=== PATIENT | male | born 1985 | race Caucasian/White ===

== ENCOUNTER 2021-01-21 16:40 | Outpatient (CLI) | payer BC, OTHER, SELFPAY ==
--- NOTE | 2021-01-21 16:58 | XR_ITS ---
WS: [id number] Left leg including the tibia and fibula, AP and lateral views, 01/21/2021 Clinical Data: LT.LOWER LEG PAIN Comparison: Left leg, 03/13/2013. Findings: No new fractures or dislocations are seen. The tibia and fibula are intact. The soft tissues are norm al. There is periosteal reaction at the proximal lateral left fibula which may be result of an old injury . The left ankle mortise appears to be normal and the left knee is unremarkable. XR/XR tibia fibula LT 2V [id number] Impression: Negative for fracture.
== END 2021-01-21 16:41 | disposition home or self-care (01) ==
PROVIDERS: Visit Provider Nurse Practitioner Family
DX: M79.662 Pain in left lower leg (principal)
CPT/HCPCS: 73590

== ENCOUNTER 2022-09-22 06:00 | Outpatient (CLI) | payer BC, SELFPAY | END 2022-09-22 06:01 | disposition home or self-care (01) | LOC: SPT 10-08 19:28 | PROVIDERS: Visit Provider Podiatrist Foot & Ankle Surgery | DX: Z46.89 Encounter for fitting and adjustment of other specified devices (principal); M79.671 Pain in right foot | CPT/HCPCS: 97760; L4361 ==

== ENCOUNTER 2022-10-03 16:44 | Emergency (ER) | payer BC, SELFPAY ==
[2022-10-03 16:51] VITALS: BP 150/96; PULSE 76; RESP 16; TEMP 36.9; O2SAT 97; BMI 46.8
--- NOTE | 2022-10-03 16:56 | XRR_ITS ---
PROCEDURE INFORMATION: Exam: XR Right Foot Exam date and time: 10/03/2022 6:03 PM Age: 36 years old Clinical indication: Pain; Foot; Right; Additional info: Injury, pain TECHNIQUE: Imaging protocol: Radiologic exam of the Right foot. Views: 3 or more views. COMPARISON: No relevant prior studies available. FINDINGS: Bones/joints: No definite fracture is identified. There is some spurring from the dorsal aspect of the foot. There is possibly a small chip or avulsion fracture seen in the lateral projection, possibly from dorsal aspect of the middle cuneiform. Please correlate with clinical findings. Soft tissues: There is mild soft tissue swelling. XR/XR foot RT min 3V* [id number] IMPRESSION: Question of small chip fracture from the dorsal aspect of 1 of the cuneiform bones versus degenerative spur.
--- NOTE | 2022-10-03 17:06 | W.ED.EXTPRO ---
HPI - Extremity Problem General: Chief complaint: Extremity Injury, Upper Stated complaint: right side leg is in pain Time Seen by Provider: 10/03/22 16:59 PFSH ED PFSH: Social History Smoking and tobacco status: never smoked Course Vital Signs: Vital signs: Vital Signs Temperature 98.5 F 10/03/22 16:51 Pulse Rate 76 10/03/22 16:51 Respiratory Rate 16 10/03/22 16:51 Blood Pressure 150/96 10/03/22 16:51 Pulse Oximetry 97 10/03/22 16:51 Oxygen Delivery Me thod 10/03/22 16:51 Discharge Plan Discharge Condition: Stable Prescriptions: No Action No Known Home Medications prednisone 20 mg tablet 40 mg PO DAILY 5 Days Qty: 10 0RF doxycycline hyclate 100 mg capsule 100 mg PO BID 7 Days Qty: 14 0RF Coding Level of Care Code ED [employer] for Emily Tobias
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
[2022-10-03] MEDS: ketorolac 60 mg/2 mL INJ IM (17:50)
[2022-10-03 18:21] VITALS: PULSE 78; RESP 16; O2SAT 97
--- NOTE | 2022-10-05 07:54 | PC.SOCIAL ---
Addendum entered by Tara Hobson 11/11/22 13:48: Patient had a follow up appointment scheduled with ortho - patient did attend appointment. Original Note: Ortho Referral Consult received for ortho referral. Referral sent to [facility] Orthopedics/Podiatry. Clinic will contact patient with appt. date/time.
== END 2022-10-03 18:31 | disposition home or self-care (01) ==
PROVIDERS: Emergency Provider Family Medicine
DX: S93.401A Sprain of unspecified ligament of right ankle, initial encounter (principal); X58.XXXA Exposure to other specified factors, initial encounter; M79.604 Pain in right leg
CPT/HCPCS: 73630; 96372; 99284; J1885

== ENCOUNTER 2022-10-16 06:09 | Outpatient (CLI) | payer BC, SELFPAY ==
--- NOTE | 2022-10-16 06:16 | CT_ITS ---
WS: [id number] CT RIGHT FOOT WITH AND WITHOUT CONTRAST. HISTORY: RIGHT foot pain, injury 2 weeks ago. Technique: All CT scans at [facility] use at least one of these dose optimization techniques: automated exposure control; mA and/or kV adjustment per patient size (includes targeted exams where dose is matched to clinical indication); or iterative reconstruction. Omnipaque 350; 95 mL IV. DLP: 523.93 mGy-cm. COMPARISON: RIGHT foot radiograph 10/03/2022 Well-circumscribed ovoid 7 mm osseous density along the dorsal foot, donor site appears to be the med ial cuneiform. The donor site margins suggests this is probably acute. This is a nondisplaced fractur e. There is mild spurring of the navicular. No additional fractures are identified. There is no widen ing of Lisfranc's joint space. There is a small osseous density in the subtalar joint. Moderate amount of soft tissue edema along the dorsal surface of the midfoot. There are no enhancing masses or fluid collections identified. No abscess. No osseous destruction. CT/CT foot RT wo/w con [id number] IMPRESSION: 1. 7 mm avulsion fracture does appear acute from the medial cuneiform. 2. Mild soft tissue edema surrounding the midfoot. No abscess or abnormal enha ncement. No osseous destruction.
[2022-10-16] MEDS: iohexol 350 mg/mL 500 mL Btl (per mL) IV (06:58)
== END 2022-10-16 06:10 | disposition home or self-care (01) ==
PROVIDERS: PCP Nurse Practitioner Family; Visit Provider Podiatrist Foot & Ankle Surgery
DX: S92.241A Displaced fracture of medial cuneiform of right foot, initial encounter for closed fracture (principal); X58.XXXA Exposure to other specified factors, initial encounter
CPT/HCPCS: 73702; Q9967

== ENCOUNTER → 2022-11-02 12:58 | Outpatient (BNVA) | payer BC, SELFPAY | PROVIDERS: PCP Nurse Practitioner Family; Visit Provider Podiatrist Foot & Ankle Surgery | DX: S93.621A Sprain of tarsometatarsal ligament of right foot, initial encounter (principal); X58.XXXA Exposure to other specified factors, initial encounter; R60.0 Localized edema | CPT/HCPCS: 73630 ==

== ENCOUNTER → 2022-11-30 14:11 | Outpatient (BNVA) | payer BC, SELFPAY | PROVIDERS: PCP Nurse Practitioner Family; Visit Provider Podiatrist Foot & Ankle Surgery | DX: S93.621A Sprain of tarsometatarsal ligament of right foot, initial encounter (principal); X58.XXXA Exposure to other specified factors, initial encounter; R60.0 Localized edema | CPT/HCPCS: 73630 ==

== ENCOUNTER → 2025-03-02 09:31 | Outpatient (BNVA) | payer OTHER, SELFPAY | PROVIDERS: PCP Nurse Practitioner Family; Visit Provider Family Medicine | DX: Z00.00 Encounter for general adult medical examination without abnormal findings (principal); Z51.81 Encounter for therapeutic drug level monitoring | CPT/HCPCS: 85025 ==

== ENCOUNTER → 2025-06-08 11:09 | Outpatient (BNVA) | payer OTHER, SELFPAY | PROVIDERS: PCP Nurse Practitioner Family; Visit Provider Family Medicine | DX: Z00.00 Encounter for general adult medical examination without abnormal findings (principal); Z51.81 Encounter for therapeutic drug level monitoring; Z13.1 Encounter for screening for diabetes mellitus; Z13.6 Encounter for screening for cardiovascular disorders; R53.81 Other malaise; R53.83 Other fatigue | CPT/HCPCS: 80053; 80061; 83036; 84443; 85025 ==

== ENCOUNTER → 2025-09-14 07:18 | Outpatient (BNVA) | payer OTHER, SELFPAY | PROVIDERS: PCP Family Medicine; Visit Provider Family Medicine | DX: E66.813 Obesity, class 3 (principal); Z68.42 Body mass index [BMI] 45.0-49.9, adult | CPT/HCPCS: 83525; 84681 ==